=== PATIENT | male | born 1995 | race African-American/Black ===

== ENCOUNTER 2019-09-01 00:49 | Emergency (ER) | payer SELFPAY ==
[~2019-09-01] VITALS: Ht 180.3 cm; Wt 109.0 kg
[2019-09-01] MEDS ORDERED: IBUPROFEN 600MG TABLET PO ONE (02:30)
[2019-09-01 02:50] VITALS: BP 160/94
== END 2019-09-01 06:49 | disposition home or self-care (01) ==
LOC: ER 00:49
DX: S50.02XA Contusion of left elbow, initial encounter (principal); S50.12XA Contusion of left forearm, initial encounter; Z88.0 Allergy status to penicillin; Y08.89XA Assault by other specified means, initial encounter; Y93.89 Activity, other specified; Y92.89 Other specified places as the place of occurrence of the external cause; Y99.8 Other external cause status
CPT/HCPCS: 73080; 73090; 99283